=== PATIENT | female | born 1985 | race Hispanic/Latino ===

== ENCOUNTER 2022-04-01 10:48 | Day surgery (SDC) | payer OTHER ==
[2022-03-31 12:03] LABS: BASOPHILS % (AUTO) 0.4 % (0.0-5.0); EOSINOPHILS % (AUTO) 2.5 % (0.0-8.0); HEMATOCRIT 40.8 % (36-48); LYMPHOCYTES % (AUTO) 31.9 % (21.0-51.0); MEAN CORPUSCULAR HEMOGLOBIN 31.4 pg (27.0-33.0); MEAN CORPUSCULAR HGB CONC 33.6 g/dL (32.0-36.0); MEAN CORPUSCULAR VOLUME 93.4 fL (79-99); MONOCYTES % (AUTO) 6.1 % (3.0-13.0); NEUTROPHILS % (AUTO) 58.8 % (40.0-77.0); PLATELET COUNT (AUTO) 364 K/uL (130-400); RED BLOOD CELL COUNT(AUTO) 4.37 MIL/uL (4.00-5.50); RED CELL DISTRIBUTION WIDTH 12.3 % (11.0-15.5); WHITE BLOOD COUNT (AUTO) 7.2 K/uL (4.8-10.8)
[2022-03-31 14:03] VITALS: BP 139/79
[~2022-04-01] VITALS: Ht 167.6 cm; Wt 67.6 kg
[2022-04-01] VITALS (16 sets, daily range): BP systolic 92–126; BP diastolic 43–84
[~2022-04-01 10:48] MED LIST: CALDOLOR 800MG+NS 250ML 250 ML IV SCH; LACTATED RINGERS 1000ML 1,000 ML IV SCH; LEVO100C4 PO; LEVO1TAB27 PO; LORA0.5T83 PO; SERT-439 PO
[2022-04-01] MEDS ORDERED: FENTANYL CITRATE PF 50 MCG/1 ML 2ML VIAL ONE ×2 (12:08→12:36)
[2022-04-01] MEDS ORDERED: PROPOFOL 10 MG/ML 20ML VIAL IV ONE (12:08)
[2022-04-01] MEDS ORDERED: LIDOCAINE PF 100MG/5ML (2%) SYRINGE 5ML ONE (12:08)
[2022-04-01] MEDS ORDERED: MIDAZOLAM HCL 1 MG/ML 2ML VIAL ONE (12:08)
[2022-04-01] MEDS ORDERED: STRONG IODINE SOLN 14ML BOTTLE ONE (12:20)
[2022-04-01] MEDS ORDERED: DEXAMETHASONE SOD PHOSPHATE 4 MG/ML 1ML VIAL ONE (12:26)
[2022-04-01] MEDS ORDERED: ONDANSETRON 4MG INJ ONE (12:27)
[2022-04-01] MEDS ORDERED: GLYCOPYRROLATE 1 MG/5 ML SYRINGE ONE (12:27)
[2022-04-01] MEDS ORDERED: MEPERIDINE-PF 25 MG/ML SYG ONE (13:24)
== END 2022-04-01 14:16 | disposition home or self-care (01) ==
LOC: DAH 10:48
PROVIDERS: ATTEND Obstetrics & Gynecology
DX: N87.9 Dysplasia of cervix uteri, unspecified (principal); N72 Inflammatory disease of cervix uteri; F41.9 Anxiety disorder, unspecified; E11.9 Type 2 diabetes mellitus without complications; E03.9 Hypothyroidism, unspecified; Z82.49 Family history of ischemic heart disease and other diseases of the circulatory system; Z83.3 Family history of diabetes mellitus; Z87.891 Personal history of nicotine dependence; Z98.891 History of uterine scar from previous surgery
CPT/HCPCS: 36415; 57520; 84703; 85025; 86850; 86900; 86901; 87635; A4215; A4221; A4222; A4223; A4351; A4663; C9803; J1100; J1741; J2001; J2175; J2250; J2405; J2704; J3010 ×2; J3490